=== PATIENT | female | born 1960 | race Caucasian/White ===

== ENCOUNTER 2021-09-08 07:54 | Emergency (ER) | payer OTHER ==
[2021-09-08 08:09] VITALS: BP 133/89; PULSE 95; TEMP 98.9; BMI 31.2
[2021-09-08] MEDS ORDERED: KETOROLAC TROMETHAMINE 30 MG/1 ML VIAL IM ONE (08:25)
[2021-09-08] MEDS ORDERED: KETOROLAC TROMETHAMINE 30 MG/1 ML VIAL ONE (08:27)
== END 2021-09-08 08:37 | disposition home or self-care (01) ==
LOC: JER 07:54
PROC: 3E023GC Introduction of Other Therapeutic Substance into Muscle, Percutaneous Approach (ICD-10-PCS; principal; 2021-09-08)
DX: R51.9 Headache, unspecified (principal); R50.9 Fever, unspecified; Z11.52 Encounter for screening for COVID-19
CPT/HCPCS: 87804; 96372; 99284-25; C9803; U0003; U0005

== ENCOUNTER 2022-08-25 07:03 | Emergency (ER) | payer OTHER ==
[2022-08-25 07:50] VITALS: TEMP 98; BMI 36.3
[2022-08-25] MEDS ORDERED: IBUPROFEN 600 MG TABLET (FP) PO ONE ×2 (08:38→08:48)
[2022-08-25] MEDS ORDERED: ALBUTEROL SO4 2.5/IPRATROPIUM 0.5 INH SOL 3 ML VIAL.NEB. NEB ONE ×2 (08:51→08:59)
[2022-08-25 11:21] LABS: INR 1.03 (0.83-1.09); PROTHROMBIN TIME (PATIENT) 11.8 SEC (9.7-13.0)
[2022-08-25 11:24] LABS: ACTIVATED PTT 35.4 SECONDS (25.2-36.5)
[2022-08-25 11:33] LABS: ALBUMIN 4.1 g/dl (3.4-5.0); BLOOD UREA NITROGEN 15.1 mg/dL (7-18); CALCIUM 8.9 mg/dL (8.5-10.1)
[2022-08-25 11:36] LABS: CREATININE 0.7 mg/dL (0.55-1.3)
[2022-08-25 11:37] LABS: BASO % 0.3 % (0-2.0); EOS % 1.7 % (0-4.5); HEMATOCRIT 42.6 % (32.4-45.2); HEMOGLOBIN 14.5 GM/dL (10.7-15.3); LYMPH % 17.9 % (8-40); MCH 29.7 pg (25.7-33.7); MCHC 34.1 g/dl (32.0-36.0); MEAN PLT VOLUME 7.7 fl (7.5-11.1); MONO % 4.7 % (3.8-10.2); NEUT % 75.4 % (42.8-82.8); PLATELET COUNT 284 10^3/uL (134-434); RDW 12.4 % (11.6-15.6); WHITE BLOOD COUNT 10.9 K/mm3 (4.0-10.0)
[2022-08-25 11:38] LABS: BILIRUBIN,TOTAL 0.4 mg/dL (0.2-1); TOT PROT 7.9 g/dl (6.4-8.2)
[2022-08-25] MEDS ORDERED: POTASSIUM CHLORIDE TABS 20 MEQ TABLET.ER (FP) PO ONE ×2 (11:41→12:16)
[2022-08-25] MEDS ORDERED: AZITHROMYCIN 250 MG TABLET PO ONE (13:29)
[2022-08-25] MEDS ORDERED: AZITHROMYCIN 250 MG TABLET ONE (14:06)
[2022-08-25 15:45] VITALS: BP 138/88; PULSE 90; RESP 18
== END 2022-08-25 14:50 | disposition home or self-care (01) ==
LOC: JER 07:03
PROC: 3E0F7GC Introduction of Other Therapeutic Substance into Respiratory Tract, Via Natural or Artificial Opening (ICD-10-PCS; principal; 2022-08-25)
DX: J06.9 Acute upper respiratory infection, unspecified (principal)
CPT/HCPCS: 0241U-QW; 36415; 71046-TC-FY; 80053; 83735; 84484; 85025; 85379; 85610; 85730; 87651; 99285-25

== ENCOUNTER 2024-01-22 11:18 | Emergency (ER) | payer OTHER ==
[2024-01-22 11:25] VITALS: BP 122/69; PULSE 110; RESP 20; TEMP 99.4; BMI 35.2
[2024-01-22] MEDS ORDERED: IBUPROFEN 600 MG TABLET (FP) PO ONE (11:44)
[2024-01-22] MEDS ORDERED: ACETAMINOPHEN 500 MG TABLET (FP) ONE (11:44)
[2024-01-22] MEDS: ACETAMINOPHEN 500 MG TABLET (FP) PO ONE (11:47)
[2024-01-22] MEDS: IBUPROFEN 600 MG TABLET (FP) PO ONE (11:47)
== END 2024-01-22 13:24 | disposition home or self-care (01) ==
LOC: JERFT 11:18
DX: J10.1 Influenza due to other identified influenza virus with other respiratory manifestations (principal); R51.9 Headache, unspecified; R09.81 Nasal congestion; R05.9 Cough, unspecified; R52 Pain, unspecified; R50.9 Fever, unspecified; Z20.822 Contact with and (suspected) exposure to COVID-19
CPT/HCPCS: 0241U-QW; 99283-25

== ENCOUNTER 2024-10-13 02:19 | Inpatient (IN) | payer OTHER ==
[2024-10-13] MEDS ORDERED: ACETAMINOPHEN INJECTION 100 ML ONE ×3 (03:02→17:54)
[2024-10-13] MEDS ORDERED: ONDANSETRON 4 MG/2 ML VIAL ONE (03:02)
[2024-10-13] MEDS: PIPERACILLIN/TAZOB 3.375 GM 3.375 GM in DEXTROSE 5%-WATER - 50 ML IVPB SCH (03:09)
[2024-10-13] MEDS: SODIUM CHLORIDE 0.9% 500 ML INFUS.BAG IV ONE (03:28)
[2024-10-13] MEDS: ACETAMINOPHEN 1000 MG/100 ML BAG IVPB ONE ×2 (03:28→09:08)
[2024-10-13] MEDS: ONDANSETRON 4 MG/2 ML VIAL IVPUSH ONE (03:29)
[2024-10-13 03:32] LABS: BASO % 0.3 % (0-2.0); EOS % 6.4 % (0-4.5); HEMATOCRIT 41.9 % (32.4-45.2); HEMOGLOBIN 14.2 GM/dL (10.7-15.3); LYMPH % 4.1 % (8-40); MCHC 33.9 g/dl (32.0-36.0); MEAN CELL VOLUME 85.4 fl (80-96); MEAN PLT VOLUME 7.7 fl (7.5-11.1); MONO % 4.9 % (3.8-10.2); NEUT % 84.3 % (42.8-82.8); PLATELET COUNT 313 10^3/uL (134-434); RDW 12.3 % (11.6-15.6); WHITE BLOOD COUNT 12.3 K/mm3 (4.0-10.0)
[2024-10-13 03:43] LABS: INR 1.09 (0.83-1.09); PROTHROMBIN TIME (PATIENT) 11.9 SEC (9.7-13.0)
[2024-10-13 03:45] LABS: ACTIVATED PTT 32.8 SECONDS (25.2-36.5)
[2024-10-13 04:00] LABS: POTASSIUM 4.1 mmol/L (3.5-5.1)
[2024-10-13 04:02] LABS: ALBUMIN 4.2 g/dl (3.4-5.0)
[2024-10-13 04:05] LABS: CREATININE 0.8 mg/dL (0.55-1.3)
[2024-10-13 04:07] LABS: BILIRUBIN,TOTAL 0.7 mg/dL (0.2-1)
[2024-10-13 05:42] LABS: URINE APPEARANCE CLEAR; URINE BILIRUBIN NEGATIVE (NEGATIVE); URINE COLOR YELLOW; URINE GLUCOSE (UA) TRACE (NEGATIVE); URINE KETONE TRACE (NEGATIVE); URINE LEUK ESTERASE NEGATIVE (NEGATIVE); URINE NITRITE NEGATIVE (NEGATIVE); URINE PROTEIN TRACE (NEGATIVE); URINE UROBILINOGEN 0.2 mg/dL (0.2-1.0)
[2024-10-13] MEDS ORDERED: PIPERACILLIN/TAZOB 3.375 GM 3.375 GM in DEXTROSE 5%-WATER - 50 ML IVPB SCH (15:30)
[2024-10-13] MEDS ORDERED: PIPERACILLIN/TAZOB 3.375 GM 3.375 GM/50 ML BAG IVPB ONE (15:41)
[2024-10-13] MEDS ORDERED: KETOROLAC TROMETHAMINE 30 MG/1 ML VIAL IVPUSH PRN (15:47)
[2024-10-13 17:22] LABS: BASO % 0.3 % (0-2.0); EOS % 7.9 % (0-4.5); HEMATOCRIT 39.3 % (32.4-45.2); HEMOGLOBIN 13.5 GM/dL (10.7-15.3); LYMPH % 5.8 % (8-40); MCH 29.3 pg (25.7-33.7); MCHC 34.2 g/dl (32.0-36.0); MEAN CELL VOLUME 85.7 fl (80-96); MEAN PLT VOLUME 7.6 fl (7.5-11.1); MONO % 7.3 % (3.8-10.2); NEUT % 78.7 % (42.8-82.8); PLATELET COUNT 249 10^3/uL (134-434); RBC 4.59 M/mm3 (3.60-5.2); RDW 12.7 % (11.6-15.6); WHITE BLOOD COUNT 8.2 K/mm3 (4.0-10.0)
[2024-10-13 17:30] LABS: INR 1.15 (0.83-1.09); PROTHROMBIN TIME (PATIENT) 12.6 SEC (9.7-13.0)
[2024-10-13] MEDS: LACTATED RINGERS SOLUTION 1,000 ML/1,000 ML INFUS.BAG IV SCH (17:43)
[2024-10-13 17:50] LABS: POTASSIUM 3.8 mmol/L (3.5-5.1)
[2024-10-13 17:52] LABS: CALCIUM 8.7 mg/dL (8.5-10.1)
[2024-10-13 17:53] LABS: ALBUMIN 3.8 g/dl (3.4-5.0); BLOOD UREA NITROGEN 12.4 mg/dL (7-18)
[2024-10-13 17:56] LABS: CREATININE 0.6 mg/dL (0.55-1.3)
[2024-10-13] MEDS: ACETAMINOPHEN 1000 MG/100 ML BAG IVPB PRN (17:56)
[2024-10-13 17:57] LABS: BILIRUBIN,TOTAL 0.5 mg/dL (0.2-1)
[2024-10-13 17:58] LABS: TOT PROT 7.2 g/dl (6.4-8.2)
[2024-10-14 03:41] VITALS: BMI 31.6
[2024-10-14] MEDS: KETOROLAC TROMETHAMINE 15 MG/ML VIAL IVPUSH PRN (06:16)
[2024-10-14 10:05] LABS: BASO % 0.3 % (0-2.0); EOS % 12.6 % (0-4.5); HEMOGLOBIN 12.7 GM/dL (10.7-15.3); LYMPH % 15.6 % (8-40); MCH 30.1 pg (25.7-33.7); MCHC 35.2 g/dl (32.0-36.0); MEAN CELL VOLUME 85.4 fl (80-96); MEAN PLT VOLUME 7.6 fl (7.5-11.1); MONO % 10.7 % (3.8-10.2); NEUT % 60.8 % (42.8-82.8); PLATELET COUNT 223 10^3/uL (134-434); RBC 4.21 M/mm3 (3.60-5.2); RDW 12.6 % (11.6-15.6); WHITE BLOOD COUNT 5.4 K/mm3 (4.0-10.0)
[2024-10-14 10:26] LABS: POTASSIUM 3.3 mmol/L (3.5-5.1)
[2024-10-14 10:40] LABS: ALBUMIN 3.5 g/dl (3.4-5.0)
[2024-10-14 10:41] LABS: BLOOD UREA NITROGEN 11.9 mg/dL (7-18); CALCIUM 8.5 mg/dL (8.5-10.1); MAGNESIUM 2.2 mg/dL (1.8-2.4)
[2024-10-14 10:44] LABS: CREATININE 0.7 mg/dL (0.55-1.3); PHOSPHOROUS 3.2 mg/dL (2.5-4.9)
[2024-10-14 10:45] LABS: BILIRUBIN,TOTAL 0.6 mg/dL (0.2-1)
[2024-10-14 10:46] LABS: TOT PROT 6.8 g/dl (6.4-8.2)
[2024-10-14] MEDS: metoPROLOL SUCCINATE 25 MG TAB.SR.24H (FP) PO SCH (11:01)
[2024-10-14] MEDS: PIPERACILLIN/TAZOB 3.375 GM 50 ML IVPB SCH (17:50)
[2024-10-14] MEDS: INSULIN ASPART SLIDING SCALE (NOVOLOG) 1 VIAL SQ SCH (21:44)
[2024-10-15] MEDS ORDERED: PROMETHAZINE HCL 25 MG/1 ML VIAL IVPB PRN ×2 (09:00→13:56)
[2024-10-15] MEDS ORDERED: ONDANSETRON 4 MG/2 ML VIAL IVPUSH PRN ×2 (09:00→13:56)
[2024-10-15] MEDS: LACTATED RINGERS SOLUTION 1,000 ML IV SCH (09:30)
[2024-10-15] MEDS ORDERED: PROPOFOL 20 ML ONE (10:43)
[2024-10-15] MEDS ORDERED: ROCURONIUM BROMIDE 50 MG/5 ML SYRINGE ONE (10:43)
[2024-10-15] MEDS ORDERED: DEXAMETHASONE SOD PHOSPHATE 4 MG/1 ML VIAL ONE (10:43)
[2024-10-15] MEDS ORDERED: LIDOCAINE HCL/PF 2% SDV 5ML VIAL ONE (10:43)
[2024-10-15] MEDS ORDERED: BUPIVACAINE HCL/PF 0.25% (2.5MG/ML) 10 ML VIAL ONE (12:06)
[2024-10-15] MEDS ORDERED: MIDAZOLAM HCL 2 MG/2 ML SINGLE DOSE VIAL ONE (12:10)
[2024-10-15] MEDS: BUPIVACAINE HCL/PF 0.25% (2.5MG/ML) 10 ML VIAL IJ ONE (12:46)
[2024-10-15] MEDS ORDERED: SUGAMMADEX SODIUM 200 MG/2 ML VIAL ONE (13:19)
[2024-10-15] MEDS ORDERED: oxyCODONE HCL 5 MG TABLET PO PRN ×2 (13:56)
[2024-10-15] MEDS: ACETAMINOPHEN 1000 MG/100 ML BAG IVPB ONE (14:34)
[2024-10-15] MEDS: INSULIN ASPART SLIDING SCALE (NOVOLOG) 1 VIAL SQ SCH (17:44)
[2024-10-15] MEDS: ACETAMINOPHEN 325 MG TABLET (FP) PO SCH (19:31)
[2024-10-15] MEDS: LOPERAMIDE HCL 2 MG CAPSULE PO ONE (20:07)
[2024-10-15 20:59] LABS: HEMATOCRIT 38.3 % (32.4-45.2); HEMOGLOBIN 13.1 GM/dL (10.7-15.3); MCH 29.5 pg (25.7-33.7); MCHC 34.3 g/dl (32.0-36.0); MEAN CELL VOLUME 85.9 fl (80-96); MEAN PLT VOLUME 7.6 fl (7.5-11.1); PLATELET COUNT 268 10^3/uL (134-434); RBC 4.46 M/mm3 (3.60-5.2); RDW 12.8 % (11.6-15.6); WHITE BLOOD COUNT 6.1 K/mm3 (4.0-10.0)
[2024-10-16 01:28] VITALS: RESP 18
[2024-10-16 08:42] LABS: BASO % 0.1 % (0-2.0); EOS % 0.2 % (0-4.5); HEMATOCRIT 39.5 % (32.4-45.2); HEMOGLOBIN 13.1 GM/dL (10.7-15.3); LYMPH % 21.1 % (8-40); MCH 29.8 pg (25.7-33.7); MCHC 33.3 g/dl (32.0-36.0); MEAN CELL VOLUME 89.5 fl (80-96); MEAN PLT VOLUME 7.6 fl (7.5-11.1); MONO % 10.7 % (3.8-10.2); NEUT % 67.9 % (42.8-82.8); PLATELET COUNT 263 10^3/uL (134-434); POTASSIUM 3.4 mmol/L (3.5-5.1); RBC 4.41 M/mm3 (3.60-5.2); RDW 12.8 % (11.6-15.6); WHITE BLOOD COUNT 4.8 K/mm3 (4.0-10.0)
[2024-10-16 08:46] LABS: ALBUMIN 3.6 g/dl (3.4-5.0); BLOOD UREA NITROGEN 15.8 mg/dL (7-18)
[2024-10-16 08:47] LABS: CALCIUM 8.5 mg/dL (8.5-10.1)
[2024-10-16 08:51] LABS: BILIRUBIN,TOTAL 0.6 mg/dL (0.2-1); CREATININE 0.5 mg/dL (0.55-1.3); TOT PROT 6.8 g/dl (6.4-8.2)
[2024-10-16] MEDS: metoPROLOL SUCCINATE 25 MG TAB.SR.24H (FP) PO SCH (09:28)
[2024-10-16 10:22] VITALS: BP 146/84; PULSE 81; TEMP 97.7
[2024-10-16] MEDS: POTASSIUM CHLORIDE TABS 10 MEQ TABLET.ER (FP) PO ONE (11:01)
== END 2024-10-16 11:24 | disposition home or self-care (01) | DRG 263 ==
LOC: JER 02:19 → JERBED 10:14 → J8W 19:58
PROVIDERS: ATTEND Student in an Organized Health Care Education/Training Program
PROC: 0FT44ZZ Resection of Gallbladder, Percutaneous Endoscopic Approach (ICD-10-PCS; principal; 2024-10-15 10:00)
DX: K80.00 Calculus of gallbladder with acute cholecystitis without obstruction (principal); E11.9 Type 2 diabetes mellitus without complications; E78.5 Hyperlipidemia, unspecified; R01.1 Cardiac murmur, unspecified; K76.0 Fatty (change of) liver, not elsewhere classified; R11.2 Nausea with vomiting, unspecified; R19.7 Diarrhea, unspecified; D72.829 Elevated white blood cell count, unspecified
CPT/HCPCS: 36415; 74177-TC; 74181-TC; 76705-TC; 80053; 81003; 82962; 83690; 83735; 84100; 84484; 85025; 85027; 85610; 85730; 87040; 87045; 87046; 87086; 87205; 87209; 87324; 87449; 88304-TC; 93005; 93010; 93306-TC; 94760; 99285-25; J0131; Q9967